=== PATIENT | female | born 1940 | race African-American/Black ===

== ENCOUNTER 2018-05-11 09:18 | Inpatient (IN) ==
[~2018-05-11 09:18] MED LIST: ACETAMINOPHEN 325 MG TABLET PO PRN; DEXTROSE 50% 25 GM/50 ML VIAL IV PRN; GLUCAGON 1 MG VIAL IM PRN; ONDANSETRON 4 MG/2 ML VIAL IV PRN
[2018-05-11 12:47] LABS: Basophils % 0.3 % (0.0-0.8); Eosinophils # 0.1 10*3/uL (0.0-0.87); Eosinophils % 1.2 % (0.00-10.9); Hematocrit 32.9 VOL% (35.7-47.0); Hemoglobin 9.8 GM/DL (12.0-16.0); Immature Granulocytes % 0.2 %; Immature Granulocytes Absolute 0.01 #; Lymphocytes % 44.9 % (21.3-54.2); Mean Corpuscular HGB Conc 29.8 GM/DL (32-36); Mean Corpuscular Hemoglobin 27 PG (27-34); Mean Corpuscular Volume 90.1 FL (87-102); Mean Platelet Volume 10.9 FL (9.6-12.0); Monocytes # 0.2 10*3/uL (0.11-0.8); Monocytes % 3.6 % (1.7-12.7); Neutrophils # 3.3 10*3/uL (1.4-7.4); Neutrophils % 49.8 % (38.7-73.9); Platelet Count 231 T/CUMM (130-400); Red Blood Count 3.65 MC/CUMM (3.8-5.5); Red Cell Distribution Width 14.8 % (9.3-17.3); White Blood Count 6.6 T/CUMM (4-12)
[2018-05-11] MEDS: INSULIN REGULAR 100 UNIT/ML SUBCUT SCH ×3 (12:48→22:12)
[2018-05-11 13:10] LABS: Alanine Aminotransferase 16 U/L (13-56); Albumin 3.2 G/DL (3.4-5.0); Alkaline Phosphatase 74 U/L (45-117); Aspartate Amino Transferase 22 U/L (0-37); Bilirubin,Total < 0.39 MG/DL (0.2-1.0); Blood Urea Nitrogen 17 MG/DL (7-18); Calcium 8.9 MG/DL (8.5-10.1); Glucose 108 MG/DL (74-106); Osmolality,Calculated 285.1 MOS/KG (273-304); Potassium 4.2 MMOL/L (3.5-5.1); Sodium 142 MMOL/L (136-145); Total Protein 8.1 G/DL (6.4-8.3)
[2018-05-11] MEDS ORDERED: FUROSEMIDE 40 MG/4 ML VIAL IV ONE (14:00)
[2018-05-11] MEDS: CLINDAMYCIN INJ 300 MG in PREMIX 1 EACH IV SCH ×2 (17:11→20:30)
[2018-05-11] MEDS: SODIUM CHLORIDE 0.9% 1,000 ML IV SCH (17:11)
[2018-05-11 17:25] LABS: Apearance,Urine CLEAR (Clear); Bilirubin,Urine Negative (Negative); Blood, Urine Negative (Negative); Glucose,Urine (UA) Negative (Negative); Ketones,Urine Negative (Negative); Mucus,Urine Occasional /LPF (Occasional); Nitrite,Urine Negative (Negative); Protein,Urine Negative; RBC,Urine 1 /HPF (0-4); Urine Color Yellow (Yellow); Urine Specific Gravity 1.015 (1.001-1.035); Urine Urobilinogen < 2.0 EU/DL (0.2-1.0); WBC,Urine 1 /HPF (0-6)
[2018-05-11] MEDS ORDERED: INSULIN NPH/REGULAR 70/30 100 UNIT/ML SUBCUT SCH (18:00)
[2018-05-11] MEDS: ALBUTEROL/IPRATROPIUM 3 ML NEB RESP TX SCH (19:55)
[2018-05-11] MEDS: ENOXAPARIN 40 MG/0.4 ML SYRINGE SUBCUT SCH (20:32)
[2018-05-11] MEDS: DOCUSATE SODIUM 100 MG CAPSULE PO SCH (20:32)
[2018-05-11] MEDS: FAMOTIDINE 20 MG TABLET PO SCH (20:32)
[2018-05-11] MEDS: traMADol 50 MG TABLET PO PRN (23:10)
[2018-05-12] MEDS: ALBUTEROL/IPRATROPIUM 3 ML NEB RESP TX SCH ×4 (01:14→19:44)
[2018-05-12] MEDS: CLINDAMYCIN INJ 300 MG in PREMIX 1 EACH IV SCH ×4 (02:38→20:08)
[2018-05-12 05:01] LABS: Calcium 8.1 MG/DL (8.5-10.1); Osmolality,Calculated 284.1 MOS/KG (273-304); Potassium 3.9 MMOL/L (3.5-5.1)
[2018-05-12] MEDS: SODIUM CHLORIDE 0.9% 1,000 ML IV SCH ×2 (06:20→23:17)
[2018-05-12] MEDS ORDERED: INSULIN NPH/REGULAR 70/30 100 UNIT/ML SUBCUT SCH ×2 (07:30→10:00)
[2018-05-12] MEDS: INSULIN REGULAR 100 UNIT/ML SUBCUT SCH ×4 (09:40→20:53)
[2018-05-12] MEDS: DOCUSATE SODIUM 100 MG CAPSULE PO SCH ×2 (09:41→20:08)
[2018-05-12] MEDS: FUROSEMIDE 40 MG/4 ML VIAL IV SCH (09:41)
[2018-05-12] MEDS: FAMOTIDINE 20 MG TABLET PO SCH ×2 (09:41→20:08)
[2018-05-12] MEDS: INSULIN NPH/REGULAR 70/30 100 UNIT/ML SUBCUT SCH (17:47)
[2018-05-12] MEDS: ENOXAPARIN 40 MG/0.4 ML SYRINGE SUBCUT SCH (20:08)
[2018-05-13] MEDS: ALBUTEROL/IPRATROPIUM 3 ML NEB RESP TX SCH ×4 (01:16→19:20)
[2018-05-13] MEDS: CLINDAMYCIN INJ 300 MG in PREMIX 1 EACH IV SCH ×4 (01:24→20:01)
[2018-05-13 07:30] LABS: Basophils % 0.7 % (0.0-0.8); Eosinophils # 0.3 10*3/uL (0.0-0.87); Eosinophils % 4.6 % (0.00-10.9); Hematocrit 28.6 VOL% (35.7-47.0); Hemoglobin 8.8 GM/DL (12.0-16.0); Immature Granulocytes % 0.2 %; Immature Granulocytes Absolute 0.01 #; Lymphocytes # 2.7 10*3/uL (1.4-4.0); Lymphocytes % 47.3 % (21.3-54.2); Mean Corpuscular HGB Conc 30.8 GM/DL (32-36); Mean Corpuscular Hemoglobin 27 PG (27-34); Mean Corpuscular Volume 88.5 FL (87-102); Mean Platelet Volume 10.7 FL (9.6-12.0); Monocytes # 0.3 10*3/uL (0.11-0.8); Monocytes % 5.9 % (1.7-12.7); Neutrophils # 2.3 10*3/uL (1.4-7.4); Neutrophils % 41.3 % (38.7-73.9); Platelet Count 196 T/CUMM (130-400); Red Blood Count 3.23 MC/CUMM (3.8-5.5); Red Cell Distribution Width 14.7 % (9.3-17.3); White Blood Count 5.6 T/CUMM (4-12)
[2018-05-13 07:48] LABS: Calcium 8.3 MG/DL (8.5-10.1); Osmolality,Calculated 289.8 MOS/KG (273-304); Potassium 4.3 MMOL/L (3.5-5.1)
[2018-05-13] MEDS: FUROSEMIDE 40 MG/4 ML VIAL IV SCH (08:52)
[2018-05-13] MEDS: INSULIN NPH/REGULAR 70/30 100 UNIT/ML SUBCUT SCH ×2 (08:52→17:20)
[2018-05-13] MEDS: DOCUSATE SODIUM 100 MG CAPSULE PO SCH ×2 (08:53→20:02)
[2018-05-13] MEDS: INSULIN REGULAR 100 UNIT/ML SUBCUT SCH ×4 (08:53→20:37)
[2018-05-13] MEDS: FAMOTIDINE 20 MG TABLET PO SCH ×2 (08:53→20:02)
[2018-05-13] MEDS: PENTOXIFYLLINE 400 MG TABLET PO SCH ×2 (15:37→20:03)
[2018-05-13] MEDS: SODIUM CHLORIDE 0.9% 1,000 ML IV SCH (20:01)
[2018-05-13] MEDS: ENOXAPARIN 40 MG/0.4 ML SYRINGE SUBCUT SCH (20:02)
[2018-05-13] MEDS: traMADol 50 MG TABLET PO PRN (20:02)
[2018-05-14] MEDS: ALBUTEROL/IPRATROPIUM 3 ML NEB RESP TX SCH ×4 (00:45→19:16)
[2018-05-14] MEDS: CLINDAMYCIN INJ 300 MG in PREMIX 1 EACH IV SCH ×4 (02:15→22:01)
[2018-05-14 05:39] LABS: Basophils % 0.6 % (0.0-0.8); Eosinophils # 0.3 10*3/uL (0.0-0.87); Eosinophils % 4.2 % (0.00-10.9); Hematocrit 29.7 VOL% (35.7-47.0); Hemoglobin 9.1 GM/DL (12.0-16.0); Immature Granulocytes % 0.3 %; Immature Granulocytes Absolute 0.02 #; Lymphocytes # 3.6 10*3/uL (1.4-4.0); Lymphocytes % 51.4 % (21.3-54.2); Mean Corpuscular HGB Conc 30.6 GM/DL (32-36); Mean Corpuscular Hemoglobin 28 PG (27-34); Mean Corpuscular Volume 89.7 FL (87-102); Mean Platelet Volume 11.2 FL (9.6-12.0); Monocytes # 0.4 10*3/uL (0.11-0.8); Monocytes % 6.1 % (1.7-12.7); Neutrophils # 2.7 10*3/uL (1.4-7.4); Neutrophils % 37.4 % (38.7-73.9); Platelet Count 191 T/CUMM (130-400); Red Blood Count 3.31 MC/CUMM (3.8-5.5); White Blood Count 7.1 T/CUMM (4-12)
[2018-05-14 06:01] LABS: Alanine Aminotransferase 16 U/L (13-56); Albumin 2.6 G/DL (3.4-5.0); Alkaline Phosphatase 59 U/L (45-117); Aspartate Amino Transferase 20 U/L (0-37); Bilirubin,Total < 0.39 MG/DL (0.2-1.0); Blood Urea Nitrogen 17 MG/DL (7-18); Calcium 8.1 MG/DL (8.5-10.1); Glucose 55 MG/DL (74-106); Osmolality,Calculated 285.8 MOS/KG (273-304); Potassium 3.6 MMOL/L (3.5-5.1); Sodium 144 MMOL/L (136-145)
[2018-05-14 07:34] LABS: Lymphocytes 49 % (20-55); Platelet Estimate Normal; Segmented Neutrophils 48 % (50-85); Total Cells Counted 100
[2018-05-14] MEDS: FAMOTIDINE 20 MG TABLET PO SCH ×2 (08:57→22:02)
[2018-05-14] MEDS: MAGNESIUM HYDROXIDE SUSP 30 ML UDCUP PO PRN (08:57)
[2018-05-14] MEDS: FUROSEMIDE 40 MG/4 ML VIAL IV SCH (08:57)
[2018-05-14] MEDS: INSULIN NPH/REGULAR 70/30 100 UNIT/ML SUBCUT SCH ×2 (08:57→18:11)
[2018-05-14] MEDS: DOCUSATE SODIUM 100 MG CAPSULE PO SCH ×2 (08:58→22:02)
[2018-05-14] MEDS: PENTOXIFYLLINE 400 MG TABLET PO SCH ×3 (08:58→22:02)
[2018-05-14] MEDS: INSULIN REGULAR 100 UNIT/ML SUBCUT SCH ×4 (08:58→22:02)
[2018-05-14] MEDS: SODIUM CHLORIDE 0.9% 1,000 ML IV SCH (09:04)
[2018-05-14] MEDS: SKIN HEALING OINT (AQUAPHOR) 50 GM TUBE TOP PRN (15:06)
[2018-05-14] MEDS: ENOXAPARIN 40 MG/0.4 ML SYRINGE SUBCUT SCH (22:02)
[2018-05-15] MEDS: ALBUTEROL/IPRATROPIUM 3 ML NEB RESP TX SCH ×4 (01:27→19:25)
[2018-05-15] MEDS: SODIUM CHLORIDE 0.9% 1,000 ML IV SCH ×2 (01:59→04:20)
[2018-05-15] MEDS: CLINDAMYCIN INJ 300 MG in PREMIX 1 EACH IV SCH ×4 (04:20→20:05)
[2018-05-15] MEDS: FAMOTIDINE 20 MG TABLET PO SCH ×2 (08:07→21:04)
[2018-05-15] MEDS: DOCUSATE SODIUM 100 MG CAPSULE PO SCH ×2 (08:07→21:04)
[2018-05-15] MEDS: PENTOXIFYLLINE 400 MG TABLET PO SCH ×3 (08:07→21:04)
[2018-05-15] MEDS: FUROSEMIDE 40 MG/4 ML VIAL IV SCH (08:08)
[2018-05-15] MEDS: INSULIN REGULAR 100 UNIT/ML SUBCUT SCH ×4 (08:09→21:04)
[2018-05-15] MEDS: INSULIN NPH/REGULAR 70/30 100 UNIT/ML SUBCUT SCH ×2 (08:09→17:05)
[2018-05-15] MEDS: ENOXAPARIN 40 MG/0.4 ML SYRINGE SUBCUT SCH (21:04)
[2018-05-16] MEDS: ALBUTEROL/IPRATROPIUM 3 ML NEB RESP TX SCH ×4 (00:58→19:37)
[2018-05-16] MEDS: SODIUM CHLORIDE 0.9% 1,000 ML IV SCH ×3 (02:00→15:32)
[2018-05-16] MEDS: CLINDAMYCIN INJ 300 MG in PREMIX 1 EACH IV SCH ×4 (02:05→20:29)
[2018-05-16] MEDS: INSULIN REGULAR 100 UNIT/ML SUBCUT SCH ×4 (08:10→20:31)
[2018-05-16] MEDS: INSULIN NPH/REGULAR 70/30 100 UNIT/ML SUBCUT SCH ×2 (09:23→18:03)
[2018-05-16] MEDS: FAMOTIDINE 20 MG TABLET PO SCH ×2 (09:24→20:32)
[2018-05-16] MEDS: DOCUSATE SODIUM 100 MG CAPSULE PO SCH ×2 (09:24→20:31)
[2018-05-16] MEDS: FUROSEMIDE 40 MG/4 ML VIAL IV SCH (09:24)
[2018-05-16] MEDS: PENTOXIFYLLINE 400 MG TABLET PO SCH ×3 (09:24→20:31)
[2018-05-16] MEDS: SKIN HEALING OINT (AQUAPHOR) 50 GM TUBE TOP PRN (09:25)
[2018-05-16] MEDS: ENOXAPARIN 40 MG/0.4 ML SYRINGE SUBCUT SCH (20:31)
[2018-05-17] MEDS: ALBUTEROL/IPRATROPIUM 3 ML NEB RESP TX SCH ×3 (00:21→13:20)
[2018-05-17] MEDS: SODIUM CHLORIDE 0.9% 1,000 ML IV SCH (01:57)
[2018-05-17] MEDS: CLINDAMYCIN INJ 300 MG in PREMIX 1 EACH IV SCH ×3 (01:58→14:57)
[2018-05-17 06:23] LABS: Basophils % 0.6 % (0.0-0.8); Eosinophils # 0.3 10*3/uL (0.0-0.87); Eosinophils % 3.8 % (0.00-10.9); Hematocrit 28.3 VOL% (35.7-47.0); Hemoglobin 8.8 GM/DL (12.0-16.0); Immature Granulocytes % 0.3 %; Immature Granulocytes Absolute 0.02 #; Lymphocytes # 2.6 10*3/uL (1.4-4.0); Mean Corpuscular HGB Conc 31.1 GM/DL (32-36); Mean Corpuscular Hemoglobin 27 PG (27-34); Mean Corpuscular Volume 87.6 FL (87-102); Mean Platelet Volume 11.2 FL (9.6-12.0); Monocytes # 0.4 10*3/uL (0.11-0.8); Monocytes % 5.9 % (1.7-12.7); Neutrophils # 3.7 10*3/uL (1.4-7.4); Neutrophils % 52.4 % (38.7-73.9); Platelet Count 179 T/CUMM (130-400); Red Blood Count 3.23 MC/CUMM (3.8-5.5); White Blood Count 7.1 T/CUMM (4-12)
[2018-05-17 06:43] LABS: Calcium 8.5 MG/DL (8.5-10.1); Osmolality,Calculated 287.8 MOS/KG (273-304); Potassium 3.7 MMOL/L (3.5-5.1)
[2018-05-17] MEDS: INSULIN REGULAR 100 UNIT/ML SUBCUT SCH ×2 (08:14→12:01)
[2018-05-17] MEDS: INSULIN NPH/REGULAR 70/30 100 UNIT/ML SUBCUT SCH (08:58)
[2018-05-17] MEDS: FUROSEMIDE 40 MG/4 ML VIAL IV SCH (08:59)
[2018-05-17] MEDS: PENTOXIFYLLINE 400 MG TABLET PO SCH ×2 (09:00→14:58)
[2018-05-17] MEDS: FAMOTIDINE 20 MG TABLET PO SCH (09:00)
[2018-05-17] MEDS: DOCUSATE SODIUM 100 MG CAPSULE PO SCH (09:00)
[2018-05-17] MEDS ORDERED: PHENOL 1.4% THROAT SPRAY 177 ML BOTTLE PO PRN (09:29)
[2018-05-17] MEDS: MAGNESIUM HYDROXIDE SUSP 30 ML UDCUP PO PRN (11:18)
[2018-05-17 12:12] VITALS: BP 165/74
== END 2018-05-17 15:40 | disposition swing bed (61) | DRG 300 ==
LOC: N.ADMINP 11:38 → N.2W 11:42 → N.5E 13:56
PROVIDERS: ADMIT Internal Medicine; ATTEND Internal Medicine

== ENCOUNTER 2020-12-17 13:16 | Inpatient (IN) ==
[2020-12-17] MEDS ORDERED: ONDANSETRON 4 MG/2 ML VIAL IV STA (17:23)
[2020-12-17] MEDS ORDERED: MORPHINE 4 MG/1 ML VIAL IV ONE (17:23)
[2020-12-17 17:33] LABS: Basophils # 0.1 10*3/uL (0.0-0.2); Basophils % 0.4 % (0.0-0.8); Eosinophils # 0.1 10*3/uL (0.0-0.87); Eosinophils % 0.5 % (0.00-10.9); Hematocrit 35.2 VOL% (35.7-47.0); Hemoglobin 10.9 GM/DL (12.0-16.0); Immature Granulocytes % 0.5 %; Immature Granulocytes Absolute 0.07 #; Lymphocytes % 23.2 % (21.3-54.2); Mean Corpuscular Volume 89.3 FL (87-102); Mean Platelet Volume 11.3 FL (9.6-12.0); Monocytes % 3.4 % (1.7-12.7); Platelet Count 279 T/CUMM (130-400); Red Blood Count 3.94 MC/CUMM (3.8-5.5); Red Cell Distribution Width 13.6 % (9.3-17.3); White Blood Count 13.1 T/CUMM (4-12)
[2020-12-17 17:39] LABS: Blood Urea Nitrogen 17 MG/DL (7-18); Calcium 9.3 MG/DL (8.5-10.1); Carbon Dioxide 29 MMOL/L (21-32); Estimated Glom Filtration Rate 51 ML/MIN; Glucose 248 MG/DL (74-106); Potassium 3.8 MMOL/L (3.5-5.1); Sodium 136 MMOL/L (136-145)
[2020-12-17] MEDS ORDERED: SODIUM CHLORIDE 0.9% 1,000 ML IV STA (18:41)
[2020-12-17] MEDS ORDERED: GLUCAGON 1 MG VIAL IM PRN (21:53)
[2020-12-17] MEDS ORDERED: ACETAMINOPHEN 325 MG TABLET PO PRN (21:53)
[2020-12-17] MEDS ORDERED: ONDANSETRON 4 MG/2 ML VIAL IV PRN (21:53)
[2020-12-17] MEDS: PIPERACILLIN/TAZOBACTAM 3,375 MG in SODIUM CHLORIDE 0.9% 100 ML IV SCH (22:44)
[2020-12-17] MEDS: DOCUSATE SODIUM 100 MG CAPSULE PO SCH (22:55)
[2020-12-17] MEDS: INSULIN REGULAR 100 UNIT/ML SUBCUT SCH (23:23)
[2020-12-18] MEDS: oxyCODONE/ACETAMINOPHEN 5-325 MG TABLET PO PRN (00:07)
[2020-12-18] MEDS: SODIUM CHLORIDE 0.9% 1,000 ML IV SCH ×6 (00:09→21:57)
[2020-12-18] MEDS ORDERED: ACETAMINOPHEN 500 MG TABLET PO PRN (00:56)
[2020-12-18] MEDS: HYDROmorphone 2 MG/1 ML VIAL IV PRN ×2 (01:19→21:59)
[2020-12-18] MEDS: PIPERACILLIN/TAZOBACTAM 3,375 MG in SODIUM CHLORIDE 0.9% 100 ML IV SCH ×3 (05:41→21:57)
[2020-12-18] MEDS: INSULIN REGULAR 100 UNIT/ML SUBCUT SCH ×3 (05:45→17:29)
[2020-12-18 06:00] LABS: Basophils % 0.4 % (0.0-0.8); Eosinophils # 0.1 10*3/uL (0.0-0.87); Eosinophils % 0.9 % (0.00-10.9); Hematocrit 25.8 VOL% (35.7-47.0); Immature Granulocytes % 0.5 %; Immature Granulocytes Absolute 0.05 #; Lymphocytes # 2.9 10*3/uL (1.4-4.0); Lymphocytes % 28.3 % (21.3-54.2); Mean Corpuscular HGB Conc 31.8 GM/DL (32-36); Mean Corpuscular Volume 89.6 FL (87-102); Mean Platelet Volume 10.6 FL (9.6-12.0); Monocytes % 4.4 % (1.7-12.7); Neutrophils % 65.5 % (38.7-73.9); Red Cell Distribution Width 13.6 % (9.3-17.3); White Blood Count 10.1 T/CUMM (4-12)
[2020-12-18 06:15] LABS: Bilirubin,Total 0.9 MG/DL (0.2-1.0); Calcium 8.4 MG/DL (8.5-10.1); Osmolality,Calculated 286.1 MOS/KG (273-304); Potassium 3.9 MMOL/L (3.5-5.1)
[2020-12-18 06:50] LABS: Hemoglobin 8.2 GM/DL (12.0-16.0); Red Blood Count 2.88 MC/CUMM (3.8-5.5)
[2020-12-18 06:51] LABS: Hypochromasia 1+; Platelet Count 213 T/CUMM (130-400)
[2020-12-18 06:52] LABS: Microcytosis Slight; Ovalocytes Slight; Platelet Estimate Normal
[2020-12-18] MEDS: DOCUSATE SODIUM 100 MG CAPSULE PO SCH ×2 (08:51→21:59)
[2020-12-18] MEDS: ASPIRIN EC 81 MG TABLET PO SCH (08:51)
[2020-12-18] MEDS: PANTOPRAZOLE 40 MG TABLET PO SCH (08:51)
[2020-12-18] MEDS: FAMOTIDINE 20 MG TABLET PO SCH ×2 (08:51→21:59)
[2020-12-18] MEDS: FERROUS SULFATE 325 MG TABLET PO SCH (08:51)
[2020-12-18] MEDS ORDERED: MIDAZOLAM 2 MG/2 ML VIAL ONE (10:29)
[2020-12-18] MEDS ORDERED: KETAMINE 500 MG/10 ML VIAL ONE (10:30)
[2020-12-18] MEDS ORDERED: fentaNYL 100 MCG/2 ML VIAL ONE (10:30)
[2020-12-18] MEDS ORDERED: propofoL 200 MG/20 ML VIAL IV ONE (10:31)
[2020-12-18] MEDS ORDERED: LIDOCAINE 2% 5 ML VIAL ONE (10:31)
[2020-12-18] MEDS ORDERED: BUPIVACAINE 0.5% 50 ML VIAL ONE (10:32)
[2020-12-18] MEDS ORDERED: LIDOCAINE 1%/EPI INJ 20 ML VIAL ONE (10:33)
[2020-12-18] MEDS ORDERED: LACTATED RINGERS 1,000 ML IV SCH (11:30)
[2020-12-18] MEDS ORDERED: SODIUM CHLORIDE 0.9% 100 ML IV ONE (11:38)
[2020-12-18 13:13] LABS: PT Patient Result 11.1 SECS (10.5-12.0)
[2020-12-18] MEDS: busPIRone 15 MG TABLET PO SCH (21:59)
[2020-12-19] MEDS: INSULIN REGULAR 100 UNIT/ML SUBCUT SCH ×4 (00:50→17:10)
[2020-12-19 06:25] LABS: Basophils % 0.5 % (0.0-0.8); Eosinophils # 0.2 10*3/uL (0.0-0.87); Eosinophils % 2.1 % (0.00-10.9); Hematocrit 26.3 VOL% (35.7-47.0); Hemoglobin 8.1 GM/DL (12.0-16.0); Immature Granulocytes % 0.2 %; Immature Granulocytes Absolute 0.02 #; Lymphocytes # 3.1 10*3/uL (1.4-4.0); Lymphocytes % 35.4 % (21.3-54.2); Mean Corpuscular HGB Conc 30.8 GM/DL (32-36); Monocytes % 5.1 % (1.7-12.7); Neutrophils % 56.7 % (38.7-73.9); Platelet Count 211 T/CUMM (130-400); Red Blood Count 2.86 MC/CUMM (3.8-5.5); Red Cell Distribution Width 13.7 % (9.3-17.3); White Blood Count 8.7 T/CUMM (4-12)
[2020-12-19] MEDS: PIPERACILLIN/TAZOBACTAM 3,375 MG in SODIUM CHLORIDE 0.9% 100 ML IV SCH ×3 (06:37→16:36)
[2020-12-19 06:48] LABS: Alanine Aminotransferase 25 U/L (13-56); Alkaline Phosphatase 85 U/L (45-117); Aspartate Amino Transferase 22 U/L (0-37); Bilirubin,Total < 0.39 MG/DL (0.2-1.0); Blood Urea Nitrogen 12 MG/DL (7-18); Calcium 8.6 MG/DL (8.5-10.1); Carbon Dioxide 28 MMOL/L (21-32); Estimated Glom Filtration Rate 73 ML/MIN; Glucose 103 MG/DL (74-106); Osmolality,Calculated 287.7 MOS/KG (273-304); Potassium 4.5 MMOL/L (3.5-5.1); Sodium 145 MMOL/L (136-145); Total Protein 6.8 G/DL (6.4-8.2)
[2020-12-19] MEDS: SODIUM CHLORIDE 0.9% 1,000 ML IV SCH ×4 (07:02→23:38)
[2020-12-19] MEDS: FAMOTIDINE 20 MG TABLET PO SCH ×2 (08:36→22:23)
[2020-12-19] MEDS: FERROUS SULFATE 325 MG TABLET PO SCH (08:36)
[2020-12-19] MEDS: DOCUSATE SODIUM 100 MG CAPSULE PO SCH ×2 (08:36→22:23)
[2020-12-19] MEDS: PANTOPRAZOLE 40 MG TABLET PO SCH (08:36)
[2020-12-19] MEDS: ASPIRIN EC 81 MG TABLET PO SCH (08:36)
[2020-12-19] MEDS: oxyCODONE/ACETAMINOPHEN 5-325 MG TABLET PO PRN ×2 (08:37→12:39)
[2020-12-19] MEDS: HYDROmorphone 2 MG/1 ML VIAL IV PRN ×3 (10:21→22:20)
[2020-12-19] MEDS ORDERED: fentaNYL 100 MCG/2 ML VIAL IV ONE (12:00)
[2020-12-19] MEDS ORDERED: DIAZEPAM 5 MG TABLET PO ONE (12:00)
[2020-12-19] MEDS ORDERED: MIDAZOLAM 2 MG/2 ML VIAL IV ONE (12:00)
[2020-12-19] MEDS ORDERED: HEPARIN/NACL 0.9% 2 UNITS/ML 4,000 UNIT/2,000 ML BAG IV ONE (13:08)
[2020-12-19] MEDS ORDERED: HEPARIN 5,000 UNIT/1 ML VIAL ONE (14:12)
[2020-12-19] MEDS ORDERED: diphenhydrAMINE 50 MG/1 ML VIAL ONE (14:30)
[2020-12-19] MEDS ORDERED: HEPARIN 5,000 UNIT/1 ML VIAL IV PRN (14:44)
[2020-12-19] MEDS ORDERED: diphenhydrAMINE 50 MG/1 ML VIAL IV PRN (15:09)
[2020-12-19] MEDS: DEXTROSE 50% 25 GM/50 ML VIAL IV PRN (15:10)
[2020-12-19] MEDS: SODIUM HYPOCHLORITE 0.25% IRRIG 473 ML BOTTLE TOP SCH (16:36)
[2020-12-19] MEDS: busPIRone 15 MG TABLET PO SCH (22:24)
[2020-12-20] MEDS: PIPERACILLIN/TAZOBACTAM 3,375 MG in SODIUM CHLORIDE 0.9% 100 ML IV SCH ×3 (01:26→17:37)
[2020-12-20] MEDS: INSULIN REGULAR 100 UNIT/ML SUBCUT SCH ×4 (01:44→17:37)
[2020-12-20 08:40] LABS: Basophils % 0.1 % (0.0-0.8); Eosinophils # 0.1 10*3/uL (0.0-0.87); Eosinophils % 0.4 % (0.00-10.9); Hematocrit 26.6 VOL% (35.7-47.0); Hemoglobin 8.6 GM/DL (12.0-16.0); Immature Granulocytes % 0.9 %; Immature Granulocytes Absolute 0.16 #; Lymphocytes # 2.2 10*3/uL (1.4-4.0); Lymphocytes % 11.7 % (21.3-54.2); Mean Corpuscular HGB Conc 32.3 GM/DL (32-36); Mean Corpuscular Volume 88.4 FL (87-102); Mean Platelet Volume 11.2 FL (9.6-12.0); Monocytes % 1.8 % (1.7-12.7); Neutrophils % 85.1 % (38.7-73.9); Platelet Count 249 T/CUMM (130-400); Red Blood Count 3.01 MC/CUMM (3.8-5.5); Red Cell Distribution Width 13.8 % (9.3-17.3); White Blood Count 18.5 T/CUMM (4-12)
[2020-12-20 08:46] LABS: Anisocytosis 1+; Band Neutrophils 12 % (0-10); Lymphocytes 8 % (20-55); Platelet Estimate Normal; Segmented Neutrophils 79 % (50-85); Smudge Cells Few; Total Cells Counted 100
[2020-12-20] MEDS: FAMOTIDINE 20 MG TABLET PO SCH ×2 (09:21→21:05)
[2020-12-20] MEDS: DOCUSATE SODIUM 100 MG CAPSULE PO SCH ×2 (09:21→21:05)
[2020-12-20] MEDS: ASPIRIN EC 81 MG TABLET PO SCH (09:22)
[2020-12-20] MEDS: CLOPIDOGREL 75 MG TABLET PO SCH (09:22)
[2020-12-20] MEDS: oxyCODONE/ACETAMINOPHEN 5-325 MG TABLET PO PRN ×2 (09:22→22:27)
[2020-12-20] MEDS: PANTOPRAZOLE 40 MG TABLET PO SCH (09:23)
[2020-12-20] MEDS: FERROUS SULFATE 325 MG TABLET PO SCH (09:23)
[2020-12-20] MEDS: SODIUM HYPOCHLORITE 0.25% IRRIG 473 ML BOTTLE TOP SCH (09:23)
[2020-12-20] MEDS ORDERED: MAGNESIUM HYDROXIDE SUSP 30 ML UDCUP PO PRN (11:49)
[2020-12-20] MEDS: SODIUM CHLORIDE 0.9% 1,000 ML IV SCH ×2 (17:31→17:34)
[2020-12-20] MEDS: busPIRone 15 MG TABLET PO SCH (21:05)
[2020-12-21] MEDS: PIPERACILLIN/TAZOBACTAM 3,375 MG in SODIUM CHLORIDE 0.9% 100 ML IV SCH ×3 (00:30→17:19)
[2020-12-21] MEDS: DEXTROSE 50% 25 GM/50 ML VIAL IV PRN (00:47)
[2020-12-21 05:52] LABS: Basophils % 0.2 % (0.0-0.8); Eosinophils # 0.4 10*3/uL (0.0-0.87); Hematocrit 23.7 VOL% (35.7-47.0); Hemoglobin 7.8 GM/DL (12.0-16.0); Immature Granulocytes % 0.7 %; Immature Granulocytes Absolute 0.12 #; Lymphocytes # 2.5 10*3/uL (1.4-4.0); Lymphocytes % 13.9 % (21.3-54.2); Mean Corpuscular HGB Conc 32.9 GM/DL (32-36); Mean Corpuscular Volume 86.5 FL (87-102); Mean Platelet Volume 11.1 FL (9.6-12.0); Monocytes % 2.5 % (1.7-12.7); Neutrophils % 80.7 % (38.7-73.9); Platelet Count 218 T/CUMM (130-400); Red Blood Count 2.74 MC/CUMM (3.8-5.5); Red Cell Distribution Width 13.8 % (9.3-17.3); White Blood Count 17.8 T/CUMM (4-12)
[2020-12-21] MEDS: INSULIN REGULAR 100 UNIT/ML SUBCUT SCH ×4 (06:03→17:18)
[2020-12-21 06:12] LABS: Calcium 7.8 MG/DL (8.5-10.1); Potassium 3.1 MMOL/L (3.5-5.1)
[2020-12-21 07:22] LABS: Eosinophils 2 % (0-10); Lymphocytes 12 % (20-55); Platelet Estimate Normal; Segmented Neutrophils 82 % (50-85); Total Cells Counted 100
[2020-12-21] MEDS: DOCUSATE SODIUM 100 MG CAPSULE PO SCH ×2 (10:14→20:35)
[2020-12-21] MEDS: FAMOTIDINE 20 MG TABLET PO SCH ×2 (10:14→20:36)
[2020-12-21] MEDS: COLLAGENASE OINT 30 GM TUBE TOP SCH (10:14)
[2020-12-21] MEDS: CLOPIDOGREL 75 MG TABLET PO SCH (10:14)
[2020-12-21] MEDS: FERROUS SULFATE 325 MG TABLET PO SCH (10:14)
[2020-12-21] MEDS: PANTOPRAZOLE 40 MG TABLET PO SCH (10:14)
[2020-12-21] MEDS: ASPIRIN EC 81 MG TABLET PO SCH (10:14)
[2020-12-21] MEDS: SODIUM HYPOCHLORITE 0.25% IRRIG 473 ML BOTTLE TOP SCH (10:28)
[2020-12-21] MEDS ORDERED: diphenhydrAMINE CAP 25 MG CAPSULE PO PRN (13:44)
[2020-12-21] MEDS: SODIUM CHLORIDE 0.9% 1,000 ML IV SCH ×2 (14:43→23:59)
[2020-12-21] MEDS: POTASSIUM CHLORIDE RIDER 10 MEQ/100 ML PREMIX IV PRN ×2 (15:11→16:14)
[2020-12-21] MEDS: oxyCODONE/ACETAMINOPHEN 5-325 MG TABLET PO PRN (20:35)
[2020-12-21] MEDS: busPIRone 15 MG TABLET PO SCH (20:35)
[2020-12-22] MEDS: INSULIN REGULAR 100 UNIT/ML SUBCUT SCH ×4 (00:12→18:38)
[2020-12-22] MEDS: PIPERACILLIN/TAZOBACTAM 3,375 MG in SODIUM CHLORIDE 0.9% 100 ML IV SCH ×3 (01:11→18:38)
[2020-12-22 06:01] LABS: Calcium 8.2 MG/DL (8.5-10.1); Osmolality,Calculated 285.8 MOS/KG (273-304); Potassium 3.5 MMOL/L (3.5-5.1)
[2020-12-22] MEDS: SODIUM CHLORIDE 0.9% 1,000 ML IV SCH (06:18)
[2020-12-22] MEDS: PANTOPRAZOLE 40 MG TABLET PO SCH (10:20)
[2020-12-22] MEDS: FERROUS SULFATE 325 MG TABLET PO SCH (10:20)
[2020-12-22] MEDS: SODIUM HYPOCHLORITE 0.25% IRRIG 473 ML BOTTLE TOP SCH (10:20)
[2020-12-22] MEDS: ASPIRIN EC 81 MG TABLET PO SCH (10:20)
[2020-12-22] MEDS: CLOPIDOGREL 75 MG TABLET PO SCH (10:20)
[2020-12-22] MEDS: COLLAGENASE OINT 30 GM TUBE TOP SCH (10:20)
[2020-12-22] MEDS: FAMOTIDINE 20 MG TABLET PO SCH ×2 (10:20→20:54)
[2020-12-22] MEDS: DOCUSATE SODIUM 100 MG CAPSULE PO SCH ×2 (10:20→20:54)
[2020-12-22] MEDS ORDERED: propofoL 200 MG/20 ML VIAL IV ONE (12:32)
[2020-12-22] MEDS ORDERED: LIDOCAINE 2% 5 ML VIAL ONE ×2 (12:32→13:59)
[2020-12-22] MEDS ORDERED: SEVOFLURANE 1 UNIT/15 MINUTE INH ONE (12:32)
[2020-12-22] MEDS ORDERED: fentaNYL 100 MCG/2 ML VIAL ONE (12:32)
[2020-12-22] MEDS ORDERED: ONDANSETRON 4 MG/2 ML VIAL ONE (12:32)
[2020-12-22] MEDS ORDERED: KETAMINE 500 MG/10 ML VIAL ONE (12:40)
[2020-12-22] MEDS ORDERED: MIDAZOLAM 2 MG/2 ML VIAL ONE (12:40)
[2020-12-22] MEDS: POTASSIUM CHLORIDE RIDER 10 MEQ/100 ML PREMIX IV PRN ×3 (14:28→18:38)
[2020-12-22] MEDS: HYDROmorphone 2 MG/1 ML VIAL IV PRN (15:50)
[2020-12-22] MEDS: busPIRone 15 MG TABLET PO SCH (20:54)
[2020-12-23] MEDS: SODIUM CHLORIDE 0.9% 1,000 ML IV SCH ×3 (00:16→16:58)
[2020-12-23] MEDS: INSULIN REGULAR 100 UNIT/ML SUBCUT SCH ×4 (00:17→18:11)
[2020-12-23] MEDS: PIPERACILLIN/TAZOBACTAM 3,375 MG in SODIUM CHLORIDE 0.9% 100 ML IV SCH ×3 (01:45→16:35)
[2020-12-23 07:02] LABS: Basophils % 0.3 % (0.0-0.8); Eosinophils # 0.3 10*3/uL (0.0-0.87); Hematocrit 22.2 VOL% (35.7-47.0); Hemoglobin 7.2 GM/DL (12.0-16.0); Immature Granulocytes Absolute 0.11 #; Lymphocytes # 3.2 10*3/uL (1.4-4.0); Lymphocytes % 27.9 % (21.3-54.2); Mean Corpuscular HGB Conc 32.4 GM/DL (32-36); Mean Corpuscular Volume 87.4 FL (87-102); Mean Platelet Volume 10.9 FL (9.6-12.0); Monocytes % 3.7 % (1.7-12.7); Neutrophils % 64.1 % (38.7-73.9); Platelet Count 250 T/CUMM (130-400); Red Blood Count 2.54 MC/CUMM (3.8-5.5); Red Cell Distribution Width 14.4 % (9.3-17.3); White Blood Count 11.5 T/CUMM (4-12)
[2020-12-23 07:07] LABS: Eosinophils 3 % (0-10); Hypochromasia 2+; Lymphocytes 28 % (20-55); Microcytosis 1+; Platelet Estimate Adequate; Segmented Neutrophils 64 % (50-85); Total Cells Counted 100
[2020-12-23 07:12] LABS: Calcium 8.4 MG/DL (8.5-10.1); Osmolality,Calculated 282.1 MOS/KG (273-304); Potassium 3.6 MMOL/L (3.5-5.1)
[2020-12-23] MEDS ORDERED: FUROSEMIDE 20 MG/2 ML VIAL IV ONE (07:38)
[2020-12-23] MEDS: methylPREDNISolone SOD SUC 40 MG/1 ML VIAL IV SCH ×2 (08:19→16:35)
[2020-12-23] MEDS ORDERED: LIDOCAINE 1% 20 ML VIAL ONE (11:44)
[2020-12-23] MEDS ORDERED: propofoL 200 MG/20 ML VIAL IV ONE (12:08)
[2020-12-23] MEDS ORDERED: LIDOCAINE 2% 5 ML VIAL ONE (12:08)
[2020-12-23] MEDS ORDERED: fentaNYL 100 MCG/2 ML VIAL ONE (12:09)
[2020-12-23] MEDS ORDERED: MIDAZOLAM 2 MG/2 ML VIAL ONE (12:10)
[2020-12-23] MEDS ORDERED: ALBUTEROL/IPRATROPIUM 3 ML NEB RESP TX ONE (12:42)
[2020-12-23] MEDS: ALBUTEROL/IPRATROPIUM 3 ML NEB RESP TX SCH ×3 (12:42→23:59)
[2020-12-23] MEDS: CLOPIDOGREL 75 MG TABLET PO SCH (13:58)
[2020-12-23] MEDS: FAMOTIDINE 20 MG TABLET PO SCH ×2 (13:58→23:57)
[2020-12-23] MEDS: FERROUS SULFATE 325 MG TABLET PO SCH (13:58)
[2020-12-23] MEDS: ASPIRIN EC 81 MG TABLET PO SCH (13:58)
[2020-12-23] MEDS: COLLAGENASE OINT 30 GM TUBE TOP SCH (13:59)
[2020-12-23] MEDS: DOCUSATE SODIUM 100 MG CAPSULE PO SCH ×2 (13:59→23:57)
[2020-12-23] MEDS: SODIUM HYPOCHLORITE 0.25% IRRIG 473 ML BOTTLE TOP SCH (13:59)
[2020-12-23] MEDS: PANTOPRAZOLE 40 MG TABLET PO SCH (13:59)
[2020-12-23] MEDS ORDERED: DEXTROSE 50% 25 GM/50 ML VIAL IV PRN (15:01)
[2020-12-23] MEDS ORDERED: GLUCAGON 1 MG VIAL IM PRN (15:01)
[2020-12-23] MEDS: busPIRone 15 MG TABLET PO SCH (23:57)
[2020-12-24] MEDS: methylPREDNISolone SOD SUC 40 MG/1 ML VIAL IV SCH ×4 (00:22→23:51)
[2020-12-24] MEDS: PIPERACILLIN/TAZOBACTAM 3,375 MG in SODIUM CHLORIDE 0.9% 100 ML IV SCH ×2 (00:25→14:03)
[2020-12-24] MEDS: SODIUM CHLORIDE 0.9% 1,000 ML IV SCH ×2 (01:03→06:25)
[2020-12-24] MEDS: INSULIN REGULAR 100 UNIT/ML SUBCUT SCH ×4 (01:05→17:38)
[2020-12-24 05:37] LABS: Basophils % 0.2 % (0.0-0.8); Eosinophils % 0.1 % (0.00-10.9); Hematocrit 21.3 VOL% (35.7-47.0); Hemoglobin 6.9 GM/DL (12.0-16.0); Immature Granulocytes % 1.2 %; Immature Granulocytes Absolute 0.15 #; Lymphocytes # 2.7 10*3/uL (1.4-4.0); Lymphocytes % 21.5 % (21.3-54.2); Mean Corpuscular HGB Conc 32.4 GM/DL (32-36); Mean Corpuscular Volume 86.6 FL (87-102); Mean Platelet Volume 10.9 FL (9.6-12.0); Monocytes % 4.5 % (1.7-12.7); Neutrophils % 72.5 % (38.7-73.9); Platelet Count 256 T/CUMM (130-400); Red Blood Count 2.46 MC/CUMM (3.8-5.5); Red Cell Distribution Width 14.1 % (9.3-17.3); White Blood Count 12.4 T/CUMM (4-12)
[2020-12-24 06:02] LABS: Albumin 1.8 G/DL (3.4-5.0); Bilirubin,Total 0.8 MG/DL (0.2-1.0); Calcium 8.4 MG/DL (8.5-10.1); Osmolality,Calculated 290.1 MOS/KG (273-304); Potassium 3.5 MMOL/L (3.5-5.1); Total Protein 6.2 G/DL (6.4-8.2)
[2020-12-24] MEDS ORDERED: SODIUM CHLORIDE 0.9% 1,000 ML IV PRN (07:08)
[2020-12-24] MEDS: ALBUTEROL/IPRATROPIUM 3 ML NEB RESP TX SCH ×3 (07:38→19:40)
[2020-12-24] MEDS ORDERED: FUROSEMIDE 20 MG/2 ML VIAL IV ONE (09:49)
[2020-12-24] MEDS ORDERED: FUROSEMIDE 20 MG/2 ML VIAL IV PRN (09:50)
[2020-12-24] MEDS: FERROUS SULFATE 325 MG TABLET PO SCH (09:58)
[2020-12-24] MEDS: CLOPIDOGREL 75 MG TABLET PO SCH (09:58)
[2020-12-24] MEDS: DOCUSATE SODIUM 100 MG CAPSULE PO SCH ×2 (09:58→23:51)
[2020-12-24] MEDS: ASPIRIN EC 81 MG TABLET PO SCH (09:58)
[2020-12-24] MEDS: FAMOTIDINE 20 MG TABLET PO SCH ×2 (09:58→23:51)
[2020-12-24] MEDS: COLLAGENASE OINT 30 GM TUBE TOP SCH (09:59)
[2020-12-24] MEDS: PANTOPRAZOLE 40 MG TABLET PO SCH (09:59)
[2020-12-24] MEDS: SODIUM HYPOCHLORITE 0.25% IRRIG 473 ML BOTTLE TOP SCH (09:59)
[2020-12-24] MEDS: busPIRone 15 MG TABLET PO SCH (23:50)
[2020-12-25] MEDS: ALBUTEROL/IPRATROPIUM 3 ML NEB RESP TX SCH ×4 (01:00→19:09)
[2020-12-25] MEDS: INSULIN REGULAR 100 UNIT/ML SUBCUT SCH ×4 (01:02→18:16)
[2020-12-25 05:26] LABS: Basophils % 0.3 % (0.0-0.8); Eosinophils % 0.2 % (0.00-10.9); Hematocrit 27.1 VOL% (35.7-47.0); Immature Granulocytes % 2.2 %; Immature Granulocytes Absolute 0.25 #; Lymphocytes # 2.9 10*3/uL (1.4-4.0); Lymphocytes % 25.5 % (21.3-54.2); Mean Corpuscular HGB Conc 33.6 GM/DL (32-36); Mean Corpuscular Volume 85.8 FL (87-102); Mean Platelet Volume 10.6 FL (9.6-12.0); Monocytes % 4.6 % (1.7-12.7); Neutrophils % 67.2 % (38.7-73.9); Platelet Count 267 T/CUMM (130-400); Red Cell Distribution Width 14.4 % (9.3-17.3); White Blood Count 11.5 T/CUMM (4-12)
[2020-12-25 05:41] LABS: Hemoglobin 9.1 GM/DL (12.0-16.0); Red Blood Count 3.16 MC/CUMM (3.8-5.5)
[2020-12-25 05:54] LABS: Albumin 1.9 G/DL (3.4-5.0); Bilirubin,Total 0.8 MG/DL (0.2-1.0); Calcium 8.6 MG/DL (8.5-10.1); Osmolality,Calculated 289.1 MOS/KG (273-304); Potassium 3.2 MMOL/L (3.5-5.1); Total Protein 6.5 G/DL (6.4-8.2)
[2020-12-25 06:15] LABS: Band Neutrophils 1 % (0-10); Hypochromasia 1+; Lymphocytes 17 % (20-55); Microcytosis 1+; Platelet Estimate Adequate; Segmented Neutrophils 79 % (50-85); Total Cells Counted 100
[2020-12-25] MEDS ORDERED: LACTATED RINGERS 1,000 ML IV SCH ×2 (06:30→09:30)
[2020-12-25] MEDS ORDERED: LIDOCAINE 2% 5 ML VIAL ONE ×2 (07:34→09:18)
[2020-12-25] MEDS ORDERED: propofoL 200 MG/20 ML VIAL IV ONE ×2 (07:34→09:18)
[2020-12-25] MEDS ORDERED: LIDOCAINE 1% 20 ML VIAL ONE (09:12)
[2020-12-25] MEDS ORDERED: fentaNYL 100 MCG/2 ML VIAL ONE (09:17)
[2020-12-25] MEDS ORDERED: KETAMINE 500 MG/10 ML VIAL ONE (09:17)
[2020-12-25] MEDS ORDERED: MIDAZOLAM 2 MG/2 ML VIAL ONE (09:17)
[2020-12-25] MEDS ORDERED: SODIUM CHLORIDE 0.9% 250 ML IV ONE (09:18)
[2020-12-25] MEDS ORDERED: ONDANSETRON 4 MG/2 ML VIAL IV PRN (10:38)
[2020-12-25] MEDS ORDERED: HYDROmorphone 2 MG/1 ML VIAL IV PRN (10:38)
[2020-12-25] MEDS ORDERED: SKIN HEALING OINT (AQUAPHOR) 50 GM TUBE TOP PRN (11:56)
[2020-12-25] MEDS: methylPREDNISolone SOD SUC 40 MG/1 ML VIAL IV SCH ×2 (12:21→15:58)
[2020-12-25] MEDS: SODIUM HYPOCHLORITE 0.25% IRRIG 473 ML BOTTLE TOP SCH (12:22)
[2020-12-25] MEDS: ASPIRIN EC 81 MG TABLET PO SCH (12:54)
[2020-12-25] MEDS: CLOPIDOGREL 75 MG TABLET PO SCH (12:54)
[2020-12-25] MEDS: FERROUS SULFATE 325 MG TABLET PO SCH (12:54)
[2020-12-25] MEDS: PANTOPRAZOLE 40 MG TABLET PO SCH (12:55)
[2020-12-25] MEDS: DOCUSATE SODIUM 100 MG CAPSULE PO SCH ×2 (12:55→21:12)
[2020-12-25] MEDS: FAMOTIDINE 20 MG TABLET PO SCH ×2 (12:55→21:12)
[2020-12-25 13:21] LABS: Basophils % 0.4 % (0.0-0.8); Eosinophils # 0.1 10*3/uL (0.0-0.87); Eosinophils % 0.7 % (0.00-10.9); Hematocrit 29.3 VOL% (35.7-47.0); Hemoglobin 9.5 GM/DL (12.0-16.0); Immature Granulocytes % 2.8 %; Immature Granulocytes Absolute 0.32 #; Lymphocytes # 3.9 10*3/uL (1.4-4.0); Lymphocytes % 34.8 % (21.3-54.2); Mean Corpuscular HGB Conc 32.4 GM/DL (32-36); Mean Corpuscular Volume 88.5 FL (87-102); Mean Platelet Volume 10.3 FL (9.6-12.0); Monocytes % 5.3 % (1.7-12.7); Platelet Count 266 T/CUMM (130-400); Red Blood Count 3.31 MC/CUMM (3.8-5.5); Red Cell Distribution Width 14.9 % (9.3-17.3); White Blood Count 11.2 T/CUMM (4-12)
[2020-12-25] MEDS ORDERED: POTASSIUM CHLORIDE 20 MEQ TABLET PO ONE (17:34)
[2020-12-25] MEDS: busPIRone 15 MG TABLET PO SCH (21:12)
[2020-12-26] MEDS: methylPREDNISolone SOD SUC 40 MG/1 ML VIAL IV SCH ×3 (00:15→16:50)
[2020-12-26] MEDS: INSULIN REGULAR 100 UNIT/ML SUBCUT SCH ×4 (00:18→18:18)
[2020-12-26] MEDS: ALBUTEROL/IPRATROPIUM 3 ML NEB RESP TX SCH ×4 (00:20→20:09)
[2020-12-26] MEDS: COLLAGENASE OINT 30 GM TUBE TOP SCH ×2 (01:59→10:19)
[2020-12-26 05:06] LABS: Basophils % 0.3 % (0.0-0.8); Hematocrit 28.9 VOL% (35.7-47.0); Hemoglobin 9.3 GM/DL (12.0-16.0); Immature Granulocytes Absolute 0.35 #; Lymphocytes # 1.6 10*3/uL (1.4-4.0); Lymphocytes % 13.5 % (21.3-54.2); Mean Corpuscular HGB Conc 32.2 GM/DL (32-36); Mean Corpuscular Volume 88.4 FL (87-102); Mean Platelet Volume 10.3 FL (9.6-12.0); Monocytes % 1.9 % (1.7-12.7); Neutrophils % 81.3 % (38.7-73.9); Platelet Count 295 T/CUMM (130-400); Red Blood Count 3.27 MC/CUMM (3.8-5.5); Red Cell Distribution Width 14.7 % (9.3-17.3); White Blood Count 11.7 T/CUMM (4-12)
[2020-12-26 05:56] LABS: Calcium 8.3 MG/DL (8.5-10.1); Osmolality,Calculated 290.1 MOS/KG (273-304); Potassium 4.4 MMOL/L (3.5-5.1)
[2020-12-26] MEDS: FAMOTIDINE 20 MG TABLET PO SCH ×2 (10:18→20:35)
[2020-12-26] MEDS: ASPIRIN EC 81 MG TABLET PO SCH (10:18)
[2020-12-26] MEDS: FERROUS SULFATE 325 MG TABLET PO SCH (10:18)
[2020-12-26] MEDS: CLOPIDOGREL 75 MG TABLET PO SCH (10:18)
[2020-12-26] MEDS: PANTOPRAZOLE 40 MG TABLET PO SCH (10:18)
[2020-12-26] MEDS: DOCUSATE SODIUM 100 MG CAPSULE PO SCH ×2 (10:18→20:35)
[2020-12-26] MEDS: SODIUM HYPOCHLORITE 0.25% IRRIG 473 ML BOTTLE TOP SCH (10:19)
[2020-12-26] MEDS: busPIRone 15 MG TABLET PO SCH (20:35)
[2020-12-27] MEDS: ALBUTEROL/IPRATROPIUM 3 ML NEB RESP TX SCH ×2 (00:16→07:18)
[2020-12-27] MEDS: INSULIN REGULAR 100 UNIT/ML SUBCUT SCH ×3 (01:12→12:06)
[2020-12-27] MEDS: methylPREDNISolone SOD SUC 40 MG/1 ML VIAL IV SCH ×2 (01:12→08:50)
[2020-12-27] MEDS: CLOPIDOGREL 75 MG TABLET PO SCH (08:50)
[2020-12-27] MEDS: FERROUS SULFATE 325 MG TABLET PO SCH (08:50)
[2020-12-27] MEDS: ASPIRIN EC 81 MG TABLET PO SCH (08:50)
[2020-12-27] MEDS: PANTOPRAZOLE 40 MG TABLET PO SCH (08:50)
[2020-12-27] MEDS: DOCUSATE SODIUM 100 MG CAPSULE PO SCH (08:50)
[2020-12-27] MEDS: FAMOTIDINE 20 MG TABLET PO SCH (08:50)
[2020-12-27] MEDS: SODIUM HYPOCHLORITE 0.25% IRRIG 473 ML BOTTLE TOP SCH (11:46)
[2020-12-27] MEDS: COLLAGENASE OINT 30 GM TUBE TOP SCH (11:46)
[2020-12-27 11:54] VITALS: BP 167/64
== END 2020-12-27 13:31 | disposition home health service (06) | DRG 253 ==
LOC: N.ED 13:16 → N.EDINP 19:55 → N.5E 21:52
PROVIDERS: ADMIT Internal Medicine; ATTEND Internal Medicine

== ENCOUNTER 2021-01-23 01:24 | Inpatient (IN) ==
[2021-01-23 02:25] LABS: Basophils % 0.2 % (0.0-0.8); Hematocrit 31.1 VOL% (35.7-47.0); Hemoglobin 10.2 GM/DL (12.0-16.0); Immature Granulocytes % 6.8 %; Immature Granulocytes Absolute 1.57 #; Lymphocytes # 0.9 10*3/uL (1.4-4.0); Lymphocytes % 3.9 % (21.3-54.2); Mean Corpuscular HGB Conc 32.8 GM/DL (32-36); Mean Corpuscular Volume 84.5 FL (87-102); Mean Platelet Volume 12.7 FL (9.6-12.0); Monocytes % 2.5 % (1.7-12.7); Neutrophils % 86.6 % (38.7-73.9); Platelet Count 184 T/CUMM (130-400); Red Blood Count 3.68 MC/CUMM (3.8-5.5); White Blood Count 23.2 T/CUMM (4-12)
[2021-01-23] MEDS ORDERED: SODIUM CHLORIDE 0.9% 1,000 ML IV STA (02:46)
[2021-01-23] MEDS ORDERED: VANCOMYCIN INJ 1,000 MG in SODIUM CHLORIDE 0.9% 250 ML IV STA (02:46)
[2021-01-23] MEDS ORDERED: DILTIAZEM 50 MG/10 ML VIAL IV STA (02:48)
[2021-01-23] MEDS ORDERED: ALBUTEROL/IPRATROPIUM 3 ML NEB RESP TX STA (02:49)
[2021-01-23] MEDS ORDERED: ACETAMINOPHEN 650 MG SUPP RECTAL STA (02:49)
[2021-01-23 02:53] LABS: Albumin 1.7 G/DL (3.4-5.0); Bilirubin,Total 0.8 MG/DL (0.2-1.0); Calcium 9.2 MG/DL (8.5-10.1); Osmolality,Calculated 288.5 MOS/KG (273-304); Potassium 3.8 MMOL/L (3.5-5.1); Total Protein 6.7 G/DL (6.4-8.2)
[2021-01-23 03:13] LABS: ABG Base Excess -1.2 MMOL/L (-2.5-2.5); ABG HCO3 20.9 MMOL/L (20-26); ABG PH 7.506 (7.35-7.45); ABG PO2 82.1 MM HG (80-95); ABG TCO2 21.7 MMOL/L (23-27)
[2021-01-23] MEDS ORDERED: DILTIAZEM INJ 100 MG in SODIUM CHLORIDE 0.9% 100 ML IV SCH (03:30)
[2021-01-23 03:53] LABS: Bilirubin,Urine Negative (Negative); Blood, Urine Negative (Negative); Glucose,Urine (UA) Negative (Negative); Ketones,Urine Negative (Negative); Mucus,Urine Moderate /LPF (Occasional); Nitrite,Urine Positive (Negative); Protein,Urine 100 MG/DL; RBC,Urine 4 /HPF (0-4); Squamous Epithelial Cell,Urine Occasional /HPF (0-10); Urine Appearance CLEAR (Clear); Urine Color Amber (Yellow)
[2021-01-23 04:05] LABS: Band Neutrophils 1 % (0-10); Lymphocytes 3 % (20-55); Platelet Estimate Adequate; Segmented Neutrophils 93 % (50-85); Total Cells Counted 100
[2021-01-23 04:06] LABS: Hypochromasia Slight; Microcytosis Slight
[2021-01-23] MEDS ORDERED: ALBUTEROL 2.5 MG/3 ML NEB RESP TX PRN (06:35)
[2021-01-23] MEDS ORDERED: ONDANSETRON 4 MG/2 ML VIAL IV PRN (06:35)
[2021-01-23] MEDS ORDERED: hydrALAZINE 20 MG/1 ML VIAL IV PRN (06:35)
[2021-01-23] MEDS ORDERED: PIPERACILLIN/TAZOBACTAM 3,375 MG in SODIUM CHLORIDE 0.9% 100 ML IV SCH (07:00)
[2021-01-23] MEDS ORDERED: SODIUM CHLORIDE 0.9% 1,000 ML IV SCH (07:00)
[2021-01-23] MEDS ORDERED: DEXTROSE 50% 25 GM/50 ML VIAL IV PRN (07:10)
[2021-01-23] MEDS ORDERED: GLUCAGON 1 MG VIAL IM PRN (07:10)
[2021-01-23 07:40] LABS: INR 1.2; PT Patient Result 13.1 SECS (10.5-12.0)
[2021-01-23] MEDS: ASPIRIN EC 81 MG TABLET PO SCH (10:01)
[2021-01-23] MEDS ORDERED: cefTRIAXone 1,000 MG VIAL ONE (10:31)
[2021-01-23] MEDS: ENOXAPARIN 40 MG/0.4 ML SYRINGE SUBCUT SCH (11:26)
[2021-01-23] MEDS: cefTRIAXone 2,000 MG in SODIUM CHLORIDE 0.9% 100 ML IV SCH (11:31)
[2021-01-23] MEDS: INSULIN REGULAR 100 UNIT/ML SUBCUT SCH ×2 (13:49→20:15)
[2021-01-23] MEDS: SODIUM CHLORIDE 0.9% 1,000 ML IV SCH ×2 (16:34→19:20)
[2021-01-23] MEDS ORDERED: DILTIAZEM 100 MG VIAL.ADD IV ONE (17:14)
[2021-01-23] MEDS ORDERED: VANCOMYCIN INJ 1,000 MG in SODIUM CHLORIDE 0.9% 250 ML IV SCH (18:00)
[2021-01-23] MEDS: DILTIAZEM INJ 100 MG in SODIUM CHLORIDE 0.9% 100 ML IV SCH (18:40)
[2021-01-23] MEDS: ACETAMINOPHEN 650 MG SUPP RECTAL PRN (21:52)
[2021-01-24] MEDS: INSULIN REGULAR 100 UNIT/ML SUBCUT SCH ×4 (00:48→18:27)
[2021-01-24] MEDS: DILTIAZEM INJ 100 MG in SODIUM CHLORIDE 0.9% 100 ML IV SCH ×4 (01:20→21:34)
[2021-01-24 02:39] LABS: Basophils # 0.2 10*3/uL (0.0-0.2); Basophils % 0.7 % (0.0-0.8); Immature Granulocytes % 8.9 %; Immature Granulocytes Absolute 1.97 #; Lymphocytes # 1.1 10*3/uL (1.4-4.0); Lymphocytes % 4.7 % (21.3-54.2); Mean Corpuscular HGB Conc 33.5 GM/DL (32-36); Mean Platelet Volume 13.5 FL (9.6-12.0); Monocytes % 2.2 % (1.7-12.7); NRBC # 0.03 10*3/uL; Neutrophils % 83.5 % (38.7-73.9); Red Blood Count 3.24 MC/CUMM (3.8-5.5); Red Cell Distribution Width 15.6 % (9.3-17.3); White Blood Count 22.2 T/CUMM (4-12)
[2021-01-24 02:46] LABS: Hematocrit 26.9 VOL% (35.7-47.0); Platelet Count 116 T/CUMM (130-400)
[2021-01-24 02:50] LABS: Albumin 1.3 G/DL (3.4-5.0); Bilirubin,Total 0.5 MG/DL (0.2-1.0); Calcium 8.7 MG/DL (8.5-10.1); Osmolality,Calculated 304.8 MOS/KG (273-304); Potassium 3.5 MMOL/L (3.5-5.1); Total Protein 5.7 G/DL (6.4-8.2)
[2021-01-24 02:54] LABS: HDL Cholesterol < 10 MG/DL (40-60); Triglycerides 156 MG/DL (2-150); VLDL Cholesterol 31.2 MG/DL
[2021-01-24 03:10] LABS: Band Neutrophils 13 % (0-10); Lymphocytes 3 % (20-55); Metamyelocytes 6 %; Segmented Neutrophils 76 % (50-85); Total Cells Counted 100
[2021-01-24 03:12] LABS: Hypochromasia 1+; Platelet Estimate Adequate
[2021-01-24] MEDS: cefTRIAXone 2,000 MG in SODIUM CHLORIDE 0.9% 100 ML IV SCH (06:03)
[2021-01-24] MEDS: SODIUM CHLORIDE 0.9% 1,000 ML IV SCH ×2 (06:03→16:05)
[2021-01-24] MEDS: ENOXAPARIN 40 MG/0.4 ML SYRINGE SUBCUT SCH (08:50)
[2021-01-24] MEDS: INSULIN GLARGINE 100 UNIT/ML SUBCUT SCH (08:51)
[2021-01-24] MEDS: ASPIRIN EC 81 MG TABLET PO SCH (18:25)
[2021-01-24] MEDS: CLOPIDOGREL 75 MG TABLET PO SCH (18:25)
[2021-01-24] MEDS: VANCOMYCIN INJ 1,000 MG in SODIUM CHLORIDE 0.9% 250 ML IV SCH (18:28)
[2021-01-25] MEDS: INSULIN REGULAR 100 UNIT/ML SUBCUT SCH ×4 (00:12→17:50)
[2021-01-25] MEDS: MORPHINE 4 MG/1 ML VIAL IV PRN ×4 (00:16→21:40)
[2021-01-25] MEDS: DILTIAZEM INJ 100 MG in SODIUM CHLORIDE 0.9% 100 ML IV SCH ×3 (03:46→17:55)
[2021-01-25] MEDS: SODIUM CHLORIDE 0.9% 1,000 ML IV SCH ×3 (03:47→15:10)
[2021-01-25 04:23] LABS: Basophils # 0.1 10*3/uL (0.0-0.2); Basophils % 0.7 % (0.0-0.8); Hemoglobin 8.5 GM/DL (12.0-16.0); Immature Granulocytes % 4.7 %; Immature Granulocytes Absolute 0.85 #; Lymphocytes # 1.3 10*3/uL (1.4-4.0); Mean Corpuscular Volume 82.2 FL (87-102); Monocytes % 1.2 % (1.7-12.7); NRBC # 0.08 10*3/uL; Neutrophils % 86.4 % (38.7-73.9); Red Blood Count 3.04 MC/CUMM (3.8-5.5)
[2021-01-25 04:25] LABS: Platelet Count 58 T/CUMM (130-400)
[2021-01-25 04:46] LABS: Calcium 8.6 MG/DL (8.5-10.1); Osmolality,Calculated 317.7 MOS/KG (273-304); Potassium 3.3 MMOL/L (3.5-5.1)
[2021-01-25 04:57] LABS: Band Neutrophils 2 % (0-10); Burr Cells Slight; Hypochromasia Slight; Lymphocytes 3 % (20-55); Microcytosis Slight; Ovalocytes Slight; Platelet Estimate Decreased; Segmented Neutrophils 92 % (50-85); Total Cells Counted 100
[2021-01-25] MEDS: cefTRIAXone 2,000 MG in SODIUM CHLORIDE 0.9% 100 ML IV SCH (06:17)
[2021-01-25] MEDS ORDERED: FONDAPARINUX 10 MG/0.8 ML SYRINGE SUBCUT SCH (08:00)
[2021-01-25] MEDS: FONDAPARINUX 2.5 MG/0.5 ML SYRINGE SUBCUT SCH (09:13)
[2021-01-25] MEDS: INSULIN GLARGINE 100 UNIT/ML SUBCUT SCH (09:13)
[2021-01-25] MEDS: ASPIRIN EC 81 MG TABLET PO SCH (09:45)
[2021-01-25] MEDS: POTASSIUM CHLORIDE 20 MEQ/15 ML UDCUP PER TUBE SCH ×3 (09:45→17:50)
[2021-01-25] MEDS: CLOPIDOGREL 75 MG TABLET PO SCH (09:45)
[2021-01-25] MEDS: VANCOMYCIN INJ 1,000 MG in SODIUM CHLORIDE 0.9% 250 ML IV SCH (17:50)
[2021-01-26] MEDS: INSULIN REGULAR 100 UNIT/ML SUBCUT SCH ×5 (00:08→23:51)
[2021-01-26] MEDS: SODIUM CHLORIDE 0.9% 1,000 ML IV SCH ×2 (01:41→06:03)
[2021-01-26 03:45] LABS: Basophils # 0.1 10*3/uL (0.0-0.2); Basophils % 0.2 % (0.0-0.8); Eosinophils % 0.1 % (0.00-10.9); Hematocrit 23.6 VOL% (35.7-47.0); Hemoglobin 7.6 GM/DL (12.0-16.0); Immature Granulocytes % 5.7 %; Immature Granulocytes Absolute 1.15 #; Lymphocytes # 2.3 10*3/uL (1.4-4.0); Lymphocytes % 11.5 % (21.3-54.2); Mean Corpuscular HGB Conc 32.2 GM/DL (32-36); Monocytes % 1.3 % (1.7-12.7); NRBC # 0.06 10*3/uL; Neutrophils % 81.2 % (38.7-73.9); Red Blood Count 2.81 MC/CUMM (3.8-5.5); Red Cell Distribution Width 16.3 % (9.3-17.3); White Blood Count 20.3 T/CUMM (4-12)
[2021-01-26 03:50] LABS: Platelet Count 54 T/CUMM (130-400)
[2021-01-26 04:02] LABS: Calcium 8.6 MG/DL (8.5-10.1); Osmolality,Calculated 324.2 MOS/KG (273-304); Potassium 3.9 MMOL/L (3.5-5.1)
[2021-01-26 04:05] LABS: Lymphocytes 13 % (20-55); Segmented Neutrophils 86 % (50-85); Total Cells Counted 100
[2021-01-26 04:08] LABS: Hypochromasia 1+; Microcytosis 2+; Ovalocytes 1+; Platelet Estimate Decreased
[2021-01-26] MEDS: cefTRIAXone 2,000 MG in SODIUM CHLORIDE 0.9% 100 ML IV SCH (06:10)
[2021-01-26] MEDS: DILTIAZEM INJ 100 MG in SODIUM CHLORIDE 0.9% 100 ML IV SCH ×2 (06:16→17:50)
[2021-01-26] MEDS: ASPIRIN EC 81 MG TABLET PO SCH (08:02)
[2021-01-26] MEDS: CLOPIDOGREL 75 MG TABLET PO SCH (08:02)
[2021-01-26] MEDS: INSULIN GLARGINE 100 UNIT/ML SUBCUT SCH (08:03)
[2021-01-26] MEDS: FONDAPARINUX 2.5 MG/0.5 ML SYRINGE SUBCUT SCH (08:05)
[2021-01-26] MEDS: MORPHINE 4 MG/1 ML VIAL IV PRN (08:18)
[2021-01-26] MEDS: ACETAMINOPHEN 650 MG SUPP RECTAL PRN ×2 (08:28→14:30)
[2021-01-26] MEDS ORDERED: SODIUM CHLORIDE 0.45% 1,000 ML IV SCH (09:00)
[2021-01-26] MEDS: RIFAMPIN INJ 600 MG in SODIUM CHLORIDE 0.9% 100 ML IV SCH (10:56)
[2021-01-26] MEDS: VANCOMYCIN INJ 1,000 MG in SODIUM CHLORIDE 0.9% 250 ML IV SCH (18:27)
[2021-01-26] MEDS: LATANOPROST 0.005% OPH SOLN 2.5 ML BOTTLE BOTH EYES SCH (20:25)
[2021-01-27] MEDS: DILTIAZEM INJ 100 MG in SODIUM CHLORIDE 0.9% 100 ML IV SCH ×3 (04:15→22:46)
[2021-01-27 04:40] LABS: Basophils % 0.1 % (0.0-0.8); Eosinophils % 0.1 % (0.00-10.9); Hematocrit 24.2 VOL% (35.7-47.0); Hemoglobin 7.7 GM/DL (12.0-16.0); Immature Granulocytes % 5.5 %; Immature Granulocytes Absolute 1.14 #; Lymphocytes # 2.8 10*3/uL (1.4-4.0); Lymphocytes % 13.8 % (21.3-54.2); Mean Corpuscular HGB Conc 31.8 GM/DL (32-36); Mean Corpuscular Volume 82.9 FL (87-102); NRBC # 0.22 10*3/uL; Neutrophils % 79.5 % (38.7-73.9); Platelet Count 75 T/CUMM (130-400); Red Blood Count 2.92 MC/CUMM (3.8-5.5); Red Cell Distribution Width 16.3 % (9.3-17.3); White Blood Count 20.7 T/CUMM (4-12)
[2021-01-27 04:59] LABS: Calcium 8.3 MG/DL (8.5-10.1); Osmolality,Calculated 325.3 MOS/KG (273-304); Potassium 4.2 MMOL/L (3.5-5.1)
[2021-01-27 05:02] LABS: Hypochromasia 1+; Lymphocytes 10 % (20-55); Microcytosis 1+; Nucleated Red Blood Cells 3 (0-5); Ovalocytes Slight; Segmented Neutrophils 87 % (50-85); Total Cells Counted 100
[2021-01-27 05:03] LABS: Platelet Estimate Decreased
[2021-01-27] MEDS: INSULIN REGULAR 100 UNIT/ML SUBCUT SCH ×4 (06:19→23:39)
[2021-01-27] MEDS: ACETAMINOPHEN 650 MG SUPP RECTAL PRN ×2 (08:46→23:40)
[2021-01-27] MEDS: INSULIN GLARGINE 100 UNIT/ML SUBCUT SCH (08:46)
[2021-01-27] MEDS: FONDAPARINUX 2.5 MG/0.5 ML SYRINGE SUBCUT SCH (08:55)
[2021-01-27] MEDS: RIFAMPIN INJ 600 MG in SODIUM CHLORIDE 0.9% 100 ML IV SCH (10:50)
[2021-01-27] MEDS: ASPIRIN EC 81 MG TABLET PO SCH (11:02)
[2021-01-27] MEDS: CLOPIDOGREL 75 MG TABLET PO SCH (11:02)
[2021-01-27] MEDS ORDERED: LIDOCAINE 1%/EPI INJ 20 ML VIAL ONE (11:53)
[2021-01-27] MEDS ORDERED: BUPIVACAINE MPF 0.25% 30 ML VIAL ONE (11:53)
[2021-01-27] MEDS ORDERED: VANCOMYCIN INJ 1,000 MG in SODIUM CHLORIDE 0.9% 250 ML IV SCH (12:00)
[2021-01-27] MEDS: MORPHINE 4 MG/1 ML VIAL IV PRN (21:40)
[2021-01-27] MEDS: LATANOPROST 0.005% OPH SOLN 2.5 ML BOTTLE BOTH EYES SCH (21:41)
[2021-01-27 23:39] VITALS: BP 153/105
[2021-01-28 04:37] LABS: Basophils % 0.1 % (0.0-0.8); Eosinophils % 0.1 % (0.00-10.9); Hematocrit 22.6 VOL% (35.7-47.0); Hemoglobin 7.4 GM/DL (12.0-16.0); Immature Granulocytes % 4.1 %; Immature Granulocytes Absolute 0.84 #; Lymphocytes # 2.5 10*3/uL (1.4-4.0); Lymphocytes % 12.4 % (21.3-54.2); Mean Corpuscular HGB Conc 32.7 GM/DL (32-36); Mean Corpuscular Volume 83.4 FL (87-102); Monocytes % 1.1 % (1.7-12.7); NRBC # 0.25 10*3/uL; Neutrophils % 82.2 % (38.7-73.9); Platelet Count 95 T/CUMM (130-400); Red Blood Count 2.71 MC/CUMM (3.8-5.5); Red Cell Distribution Width 16.4 % (9.3-17.3); White Blood Count 20.4 T/CUMM (4-12)
[2021-01-28 05:03] LABS: Band Neutrophils 1 % (0-10); Lymphocytes 10 % (20-55); Macrocytosis Slight; Nucleated Red Blood Cells 1 (0-5); Platelet Estimate Decreased; Polychromasia Slight; Segmented Neutrophils 89 % (50-85); Total Cells Counted 100
[2021-01-28 05:04] LABS: Hypochromasia 1+
[2021-01-28] MEDS: INSULIN REGULAR 100 UNIT/ML SUBCUT SCH ×2 (05:40→12:23)
[2021-01-28 06:11] LABS: Calcium 8.2 MG/DL (8.5-10.1); Osmolality,Calculated 329.3 MOS/KG (273-304); Potassium 4.1 MMOL/L (3.5-5.1)
[2021-01-28] MEDS: DILTIAZEM INJ 100 MG in SODIUM CHLORIDE 0.9% 100 ML IV SCH (06:20)
[2021-01-28] MEDS: FONDAPARINUX 2.5 MG/0.5 ML SYRINGE SUBCUT SCH (08:17)
[2021-01-28] MEDS: ASPIRIN EC 81 MG TABLET PO SCH (08:17)
[2021-01-28] MEDS: CLOPIDOGREL 75 MG TABLET PO SCH (08:17)
[2021-01-28] MEDS ORDERED: INSULIN GLARGINE 100 UNIT/ML SUBCUT SCH (09:00)
[2021-01-28] MEDS ORDERED: DILTIAZEM CD 240 MG CAPSULE PO SCH (10:30)
== END 2021-01-28 14:25 | DRG 981 ==
LOC: EDBD → EDUNIT# → N.ED 01:24 → SUATTDRO 06:35 → N.EDINP 06:35 → N.ICU 18:40
PROVIDERS: ADMIT Internal Medicine; ATTEND Family Medicine

== ENCOUNTER 2021-01-31 12:30 | Inpatient (IN) ==
[2021-01-31] MEDS ORDERED: ETOMIDATE 40 MG/20 ML VIAL IV ONE (15:37)
[2021-01-31] MEDS ORDERED: LIDOCAINE 2% 5 ML VIAL ONE ×2 (15:37→18:24)
[2021-01-31] MEDS ORDERED: fentaNYL 100 MCG/2 ML VIAL ONE (15:38)
[2021-01-31] MEDS ORDERED: CLINDAMYCIN INJ 900 MG/50 ML PREMIX IV ONE (15:42)
[2021-01-31] MEDS ORDERED: SODIUM CHLORIDE 0.9% 1,000 ML IV PRN (15:56)
[2021-01-31 16:25] LABS: Basophils % 0.1 % (0.0-0.8); Eosinophils # 0.1 10*3/uL (0.0-0.87); Eosinophils % 0.4 % (0.00-10.9); Hematocrit 20.8 VOL% (35.7-47.0); Hemoglobin 6.5 GM/DL (12.0-16.0); Immature Granulocytes % 1.6 %; Immature Granulocytes Absolute 0.32 #; Lymphocytes # 2.5 10*3/uL (1.4-4.0); Lymphocytes % 12.6 % (21.3-54.2); Mean Corpuscular HGB Conc 31.3 GM/DL (32-36); Mean Corpuscular Volume 88.1 FL (87-102); Mean Platelet Volume 12.3 FL (9.6-12.0); Monocytes % 1.2 % (1.7-12.7); NRBC # 0.04 10*3/uL; Neutrophils % 84.1 % (38.7-73.9); Platelet Count 266 T/CUMM (130-400); Red Blood Count 2.36 MC/CUMM (3.8-5.5); Red Cell Distribution Width 16.9 % (9.3-17.3)
[2021-01-31 17:17] LABS: Calcium 8.4 MG/DL (8.5-10.1); Osmolality,Calculated 304.3 MOS/KG (273-304); Potassium 4.1 MMOL/L (3.5-5.1)
[2021-01-31 17:53] LABS: Band Neutrophils 3 % (0-10); Eosinophils 1 % (0-10); Lymphocytes 7 % (20-55); Segmented Neutrophils 89 % (50-85); Total Cells Counted 100
[2021-01-31 17:54] LABS: Hypochromasia 1+; Microcytosis 1+
[2021-01-31 17:55] LABS: Platelet Estimate Adequate; Polychromasia Slight; Target Cells Slight
[2021-01-31] MEDS ORDERED: SEVOFLURANE 1 UNIT/15 MINUTE INH ONE (18:24)
[2021-01-31] MEDS ORDERED: PHENYLEPHRINE 1 MG/10 ML SYRINGE IV ONE (18:24)
[2021-01-31] MEDS ORDERED: ROCURONIUM 50 MG/5 ML VIAL IV ONE (18:24)
[2021-01-31] MEDS ORDERED: SODIUM CHLORIDE 0.9% 1,000 ML IV ONE (18:24)
[2021-01-31] MEDS ORDERED: hydrALAZINE 20 MG/1 ML VIAL IV PRN (19:07)
[2021-01-31] MEDS ORDERED: traMADol 50 MG TABLET PO PRN (19:07)
[2021-01-31] MEDS ORDERED: ACETAMINOPHEN 500 MG TABLET PO PRN (19:07)
[2021-01-31] MEDS ORDERED: ONDANSETRON 4 MG/2 ML VIAL IV PRN (19:07)
[2021-01-31] MEDS ORDERED: KETOROLAC 15 MG/1 ML VIAL IV PRN (19:07)
[2021-01-31] MEDS ORDERED: GLUCAGON 1 MG VIAL IM PRN (19:07)
[2021-01-31] MEDS ORDERED: ACETAMINOPHEN 650 MG SUPP RECTAL PRN (19:07)
[2021-01-31] MEDS ORDERED: PROMETHAZINE 25 MG/1 ML VIAL IM PRN (19:07)
[2021-01-31] MEDS ORDERED: DEXTROSE 50% 25 GM/50 ML VIAL IV PRN (19:47)
[2021-01-31 20:08] LABS: Basophils % 0.2 % (0.0-0.8); Eosinophils # 0.1 10*3/uL (0.0-0.87); Eosinophils % 0.4 % (0.00-10.9); Hematocrit 25.1 VOL% (35.7-47.0); Hemoglobin 8.3 GM/DL (12.0-16.0); Immature Granulocytes % 1.3 %; Immature Granulocytes Absolute 0.24 #; Lymphocytes # 2.7 10*3/uL (1.4-4.0); Lymphocytes % 14.4 % (21.3-54.2); Mean Corpuscular HGB Conc 33.1 GM/DL (32-36); Mean Corpuscular Volume 88.1 FL (87-102); Mean Platelet Volume 12.8 FL (9.6-12.0); Monocytes % 1.4 % (1.7-12.7); NRBC # 0.06 10*3/uL; Neutrophils % 82.3 % (38.7-73.9); Platelet Count 230 T/CUMM (130-400); Red Blood Count 2.85 MC/CUMM (3.8-5.5); Red Cell Distribution Width 18.7 % (9.3-17.3); White Blood Count 18.7 T/CUMM (4-12)
[2021-01-31] MEDS: LACTATED RINGERS 1,000 ML IV SCH (20:12)
[2021-01-31] MEDS: POTASSIUM CHLORIDE 10 MEQ TABLET PO SCH (20:13)
[2021-01-31] MEDS: SENNA 8.6 MG TABLET PO SCH (20:13)
[2021-01-31] MEDS: DOCUSATE SODIUM 100 MG CAPSULE PO SCH (20:13)
[2021-01-31] MEDS: FAMOTIDINE 20 MG TABLET PO SCH (20:13)
[2021-01-31] MEDS: busPIRone 15 MG TABLET PO SCH (20:13)
[2021-01-31 20:43] LABS: Lymphocytes 9 % (20-55); Segmented Neutrophils 91 % (50-85); Total Cells Counted 100
[2021-01-31 20:44] LABS: Hypochromasia 1+; Microcytosis 1+
[2021-01-31 20:45] LABS: Polychromasia Slight
[2021-01-31 20:55] LABS: Osmolality,Calculated 304.3 MOS/KG (273-304); Potassium 4.5 MMOL/L (3.5-5.1)
[2021-01-31] MEDS: LATANOPROST 0.005% OPH SOLN 2.5 ML BOTTLE BOTH EYES SCH (21:49)
[2021-02-01 00:01] LABS: Hematocrit 26.9 VOL% (35.7-47.0); Hemoglobin 8.8 GM/DL (12.0-16.0)
[2021-02-01 04:22] LABS: Basophils % 0.2 % (0.0-0.8); Eosinophils # 0.1 10*3/uL (0.0-0.87); Eosinophils % 0.6 % (0.00-10.9); Hematocrit 24.7 VOL% (35.7-47.0); Hemoglobin 8.1 GM/DL (12.0-16.0); Immature Granulocytes % 1.3 %; Immature Granulocytes Absolute 0.22 #; Lymphocytes # 2.4 10*3/uL (1.4-4.0); Lymphocytes % 14.1 % (21.3-54.2); Mean Corpuscular HGB Conc 32.8 GM/DL (32-36); Mean Corpuscular Volume 87.9 FL (87-102); Mean Platelet Volume 12.2 FL (9.6-12.0); Monocytes % 1.2 % (1.7-12.7); NRBC # 0.05 10*3/uL; Neutrophils % 82.6 % (38.7-73.9); Platelet Count 247 T/CUMM (130-400); Red Blood Count 2.81 MC/CUMM (3.8-5.5); Red Cell Distribution Width 16.5 % (9.3-17.3)
[2021-02-01] MEDS: LACTATED RINGERS 1,000 ML IV SCH (04:41)
[2021-02-01 04:47] LABS: Calcium 7.8 MG/DL (8.5-10.1); Osmolality,Calculated 306.1 MOS/KG (273-304)
[2021-02-01 07:31] LABS: Lymphocytes 5 % (20-55); Nucleated Red Blood Cells 1 (0-5); Segmented Neutrophils 94 % (50-85); Total Cells Counted 100
[2021-02-01 07:32] LABS: Hypochromasia Slight; Macrocytosis Slight; Polychromasia 1+
[2021-02-01 07:33] LABS: Platelet Estimate Adequate
[2021-02-01] MEDS ORDERED: DILTIAZEM 60 MG TABLET PO SCH (09:09)
[2021-02-01] MEDS: DILTIAZEM CD 240 MG CAPSULE PO SCH (09:10)
[2021-02-01 09:20] LABS: ABG Base Excess 0.2 MMOL/L (-2.5-2.5); ABG HCO3 24.7 MMOL/L (20-26); ABG Oxygen Saturation 99.4 % (95-100); ABG PCO2 33.2 MM HG (35-48); ABG PH 7.461 (7.35-7.45); ABG TCO2 22.1 MMOL/L (23-27)
[2021-02-01] MEDS: HYDROmorphone 2 MG/1 ML VIAL IV PRN ×2 (09:39→14:30)
[2021-02-01] MEDS: SENNA 8.6 MG TABLET PO SCH ×2 (09:46→20:36)
[2021-02-01] MEDS: POTASSIUM CHLORIDE 10 MEQ TABLET PO SCH ×2 (09:47→20:33)
[2021-02-01] MEDS: FAMOTIDINE 20 MG TABLET PO SCH ×2 (09:47→20:33)
[2021-02-01] MEDS: CHOLECALCIFEROL 1,000 UNIT TABLET PO SCH (09:47)
[2021-02-01] MEDS: DOCUSATE SODIUM 100 MG CAPSULE PO SCH ×2 (09:47→20:33)
[2021-02-01] MEDS: FERROUS SULFATE 325 MG TABLET PO SCH (09:48)
[2021-02-01] MEDS: ASPIRIN EC 81 MG TABLET PO SCH (09:48)
[2021-02-01] MEDS: MULTIVITAMIN (CENTRUM) TABLET PO SCH (09:48)
[2021-02-01] MEDS: DEXTROSE 5% NACL 0.45% 1,000 ML IV SCH ×2 (10:36→23:20)
[2021-02-01] MEDS: ENOXAPARIN 40 MG/0.4 ML SYRINGE SUBCUT SCH (12:07)
[2021-02-01] MEDS: DILTIAZEM 60 MG TABLET PO SCH ×2 (15:05→20:32)
[2021-02-01] MEDS ORDERED: LORazepam 1 MG TABLET PO PRN (15:42)
[2021-02-01] MEDS: INSULIN REGULAR 100 UNIT/ML SUBCUT SCH ×2 (15:52→20:39)
[2021-02-01] MEDS ORDERED: FUROSEMIDE 40 MG/4 ML VIAL IV ONE (17:23)
[2021-02-01] MEDS ORDERED: LEVALBUTEROL 1.25 MG/3 ML NEB RESP TX ONE (17:49)
[2021-02-01] MEDS: LEVALBUTEROL 1.25 MG/3 ML NEB RESP TX SCH ×3 (17:57→23:09)
[2021-02-01] MEDS ORDERED: LEVALBUTEROL 1.25 MG/3 ML NEB RESP TX PRN (18:01)
[2021-02-01] MEDS ORDERED: methylPREDNISolone SOD SUC 125 MG/2 ML VIAL IV ONE (18:17)
[2021-02-01 18:27] LABS: ABG Base Excess -0.4 MMOL/L (-2.5-2.5); ABG HCO3 24.1 MMOL/L (20-26); ABG PCO2 36.8 MM HG (35-48); ABG PH 7.419 (7.35-7.45); ABG TCO2 22.2 MMOL/L (23-27)
[2021-02-01] MEDS ORDERED: LEVALBUTEROL 1.25 MG/3 ML NEB RESP TX SCH (19:00)
[2021-02-01] MEDS: LATANOPROST 0.005% OPH SOLN 2.5 ML BOTTLE BOTH EYES SCH (20:28)
[2021-02-01] MEDS: busPIRone 15 MG TABLET PO SCH (20:33)
[2021-02-02] MEDS: DEXTROSE 5% NACL 0.45% 1,000 ML IV SCH ×2 (01:52→08:38)
[2021-02-02] MEDS: LEVALBUTEROL 1.25 MG/3 ML NEB RESP TX SCH ×5 (02:56→19:38)
[2021-02-02] MEDS: DILTIAZEM 60 MG TABLET PO SCH (03:09)
[2021-02-02 04:44] LABS: ABG Base Excess -1.6 MMOL/L (-2.5-2.5); ABG HCO3 23.2 MMOL/L (20-26); ABG Oxygen Saturation 99.8 % (95-100); ABG PH 7.406 (7.35-7.45); ABG TCO2 19.8 MMOL/L (23-27); Allen Test Positive; Pt O2 Delivery Device Other
[2021-02-02] MEDS ORDERED: INSULIN GLARGINE 100 UNIT/ML SUBCUT SCH (09:00)
[2021-02-02 09:10] LABS: Basophils % 0.1 % (0.0-0.8); Hematocrit 25.8 VOL% (35.7-47.0); Hemoglobin 8.2 GM/DL (12.0-16.0); Immature Granulocytes % 0.5 %; Immature Granulocytes Absolute 0.07 #; Lymphocytes # 1.1 10*3/uL (1.4-4.0); Lymphocytes % 7.5 % (21.3-54.2); Mean Corpuscular HGB Conc 31.8 GM/DL (32-36); Mean Corpuscular Volume 92.5 FL (87-102); Mean Platelet Volume 11.6 FL (9.6-12.0); Monocytes % 0.9 % (1.7-12.7); Platelet Count 257 T/CUMM (130-400); Red Blood Count 2.79 MC/CUMM (3.8-5.5); Red Cell Distribution Width 18.4 % (9.3-17.3); White Blood Count 14.9 T/CUMM (4-12)
[2021-02-02 09:17] LABS: Hypochromasia Slight; Lymphocytes 7 % (20-55); Microcytosis Slight; Platelet Estimate Adequate; Segmented Neutrophils 93 % (50-85); Total Cells Counted 100
[2021-02-02] MEDS: DILTIAZEM CD 240 MG CAPSULE PO SCH (09:43)
[2021-02-02] MEDS: ASPIRIN EC 81 MG TABLET PO SCH (09:43)
[2021-02-02] MEDS: POTASSIUM CHLORIDE 10 MEQ TABLET PO SCH ×2 (09:43→20:51)
[2021-02-02] MEDS: INSULIN REGULAR 100 UNIT/ML SUBCUT SCH ×3 (09:43→23:35)
[2021-02-02] MEDS: CHOLECALCIFEROL 1,000 UNIT TABLET PO SCH (09:43)
[2021-02-02] MEDS: MULTIVITAMIN (CENTRUM) TABLET PO SCH (09:44)
[2021-02-02] MEDS: FAMOTIDINE 20 MG TABLET PO SCH ×2 (09:44→20:51)
[2021-02-02] MEDS: FERROUS SULFATE 325 MG TABLET PO SCH (09:44)
[2021-02-02 09:46] VITALS: BP 114/45
[2021-02-02] MEDS: SENNA 8.6 MG TABLET PO SCH ×2 (09:46→20:51)
[2021-02-02] MEDS: DOCUSATE SODIUM 100 MG CAPSULE PO SCH ×2 (09:46→20:51)
[2021-02-02 10:08] LABS: Calcium 7.9 MG/DL (8.5-10.1); Osmolality,Calculated 302.4 MOS/KG (273-304); Potassium 4.6 MMOL/L (3.5-5.1)
[2021-02-02] MEDS ORDERED: INSULIN GLARGINE 100 UNIT/ML SUBCUT ONE (10:52)
[2021-02-02] MEDS ORDERED: INSULIN REGULAR 100 UNIT/ML SUBCUT SCH ×2 (12:00→16:00)
[2021-02-02] MEDS ORDERED: INSULIN REGULAR 100 UNIT/ML SUBCUT ONE (14:40)
[2021-02-02] MEDS ORDERED: INSULIN REGULAR 100 UNIT/ML ONE (14:46)
[2021-02-02] MEDS: ENOXAPARIN 40 MG/0.4 ML SYRINGE SUBCUT SCH (14:50)
[2021-02-02] MEDS: LACTATED RINGERS 1,000 ML IV SCH (16:15)
[2021-02-02] MEDS: LATANOPROST 0.005% OPH SOLN 2.5 ML BOTTLE BOTH EYES SCH (20:51)
[2021-02-02] MEDS: busPIRone 15 MG TABLET PO SCH (20:51)
[2021-02-03] MEDS: LEVALBUTEROL 1.25 MG/3 ML NEB RESP TX SCH ×7 (01:38→22:35)
[2021-02-03] MEDS: LACTATED RINGERS 1,000 ML IV SCH ×4 (02:45→22:43)
[2021-02-03] MEDS: INSULIN REGULAR 100 UNIT/ML SUBCUT SCH ×3 (04:51→22:27)
[2021-02-03] MEDS: POTASSIUM CHLORIDE 10 MEQ TABLET PO SCH ×2 (08:21→20:59)
[2021-02-03] MEDS: CHOLECALCIFEROL 1,000 UNIT TABLET PO SCH (08:22)
[2021-02-03] MEDS: FAMOTIDINE 20 MG TABLET PO SCH ×2 (08:22→20:59)
[2021-02-03] MEDS: FERROUS SULFATE 325 MG TABLET PO SCH (08:22)
[2021-02-03] MEDS: MULTIVITAMIN (CENTRUM) TABLET PO SCH (08:22)
[2021-02-03] MEDS: DILTIAZEM CD 240 MG CAPSULE PO SCH (08:22)
[2021-02-03] MEDS: ASPIRIN EC 81 MG TABLET PO SCH (08:22)
[2021-02-03] MEDS: DOCUSATE SODIUM 100 MG CAPSULE PO SCH ×2 (08:22→20:59)
[2021-02-03] MEDS: INSULIN GLARGINE 100 UNIT/ML SUBCUT SCH (08:23)
[2021-02-03 09:44] LABS: Basophils % 0.3 % (0.0-0.8); Eosinophils # 0.1 10*3/uL (0.0-0.87); Hematocrit 22.4 VOL% (35.7-47.0); Hemoglobin 7.1 GM/DL (12.0-16.0); Immature Granulocytes % 0.6 %; Immature Granulocytes Absolute 0.06 #; Lymphocytes # 1.4 10*3/uL (1.4-4.0); Mean Corpuscular HGB Conc 31.7 GM/DL (32-36); Mean Corpuscular Volume 91.1 FL (87-102); Mean Platelet Volume 10.6 FL (9.6-12.0); Monocytes % 1.4 % (1.7-12.7); Neutrophils % 83.7 % (38.7-73.9); Platelet Count 316 T/CUMM (130-400); Red Blood Count 2.46 MC/CUMM (3.8-5.5); Red Cell Distribution Width 18.1 % (9.3-17.3); White Blood Count 10.5 T/CUMM (4-12)
[2021-02-03 10:13] LABS: Calcium 7.6 MG/DL (8.5-10.1); Osmolality,Calculated 289.8 MOS/KG (273-304); Potassium 3.7 MMOL/L (3.5-5.1)
[2021-02-03] MEDS: ENOXAPARIN 40 MG/0.4 ML SYRINGE SUBCUT SCH (13:10)
[2021-02-03] MEDS: SENNA 8.6 MG TABLET PO SCH ×2 (17:13→20:59)
[2021-02-03] MEDS: LATANOPROST 0.005% OPH SOLN 2.5 ML BOTTLE BOTH EYES SCH (20:59)
[2021-02-03] MEDS: busPIRone 15 MG TABLET PO SCH (20:59)
[2021-02-04] MEDS: INSULIN REGULAR 100 UNIT/ML SUBCUT SCH ×6 (01:33→20:29)
[2021-02-04] MEDS: LEVALBUTEROL 1.25 MG/3 ML NEB RESP TX SCH ×4 (02:13→15:02)
[2021-02-04 04:10] LABS: Calcium 7.7 MG/DL (8.5-10.1); Potassium 4.2 MMOL/L (3.5-5.1)
[2021-02-04 04:42] LABS: Basophils % 0.4 % (0.0-0.8); Eosinophils # 0.1 10*3/uL (0.0-0.87); Eosinophils % 0.8 % (0.00-10.9); Hematocrit 22.8 VOL% (35.7-47.0); Hemoglobin 7.3 GM/DL (12.0-16.0); Immature Granulocytes % 0.6 %; Immature Granulocytes Absolute 0.05 #; Lymphocytes # 1.3 10*3/uL (1.4-4.0); Lymphocytes % 16.4 % (21.3-54.2); Mean Corpuscular Volume 90.5 FL (87-102); Mean Platelet Volume 10.6 FL (9.6-12.0); Monocytes % 2.4 % (1.7-12.7); Neutrophils % 79.4 % (38.7-73.9); Platelet Count 339 T/CUMM (130-400); Red Blood Count 2.52 MC/CUMM (3.8-5.5); Red Cell Distribution Width 18.5 % (9.3-17.3); White Blood Count 7.8 T/CUMM (4-12)
[2021-02-04 05:13] LABS: Hypochromasia 1+; Lymphocytes 13 % (20-55); Microcytosis 1+; Ovalocytes Slight; Platelet Estimate Adequate; Segmented Neutrophils 86 % (50-85); Total Cells Counted 100
[2021-02-04] MEDS: FAMOTIDINE 20 MG TABLET PO SCH ×2 (09:30→20:28)
[2021-02-04] MEDS: MULTIVITAMIN (CENTRUM) TABLET PO SCH (09:30)
[2021-02-04] MEDS: CHOLECALCIFEROL 1,000 UNIT TABLET PO SCH (09:30)
[2021-02-04] MEDS: DOCUSATE SODIUM 100 MG CAPSULE PO SCH ×2 (09:30→20:28)
[2021-02-04] MEDS: POTASSIUM CHLORIDE 10 MEQ TABLET PO SCH ×2 (09:30→20:28)
[2021-02-04] MEDS: ASPIRIN EC 81 MG TABLET PO SCH (09:30)
[2021-02-04] MEDS: DILTIAZEM CD 240 MG CAPSULE PO SCH (09:30)
[2021-02-04] MEDS: SENNA 8.6 MG TABLET PO SCH ×2 (09:31→21:20)
[2021-02-04] MEDS: FERROUS SULFATE 325 MG TABLET PO SCH (09:31)
[2021-02-04] MEDS: INSULIN GLARGINE 100 UNIT/ML SUBCUT SCH (09:32)
[2021-02-04] MEDS: LACTATED RINGERS 1,000 ML IV SCH ×2 (10:07→19:12)
[2021-02-04] MEDS: ENOXAPARIN 40 MG/0.4 ML SYRINGE SUBCUT SCH (15:20)
[2021-02-04] MEDS: busPIRone 15 MG TABLET PO SCH (20:28)
[2021-02-04] MEDS: LATANOPROST 0.005% OPH SOLN 2.5 ML BOTTLE BOTH EYES SCH (21:20)
== END 2021-02-04 22:20 | DRG 240 ==
LOC: N.SDSINP 15:20 → N.ICU 19:38
PROVIDERS: ADMIT Surgery; ATTEND Surgery